=== PATIENT | female | born 1975 | race Caucasian/White ===

== ENCOUNTER 2024-02-05 11:09 | Emergency (ER) | payer OTHER, SELFPAY ==
[2024-02-05 11:11] VITALS: BP 159/99
[2024-02-05 12:36] VITALS: BP 120/66; BP 120/88; BP 129/85; PULSE 64; PULSE 72
[2024-02-05 13:00] VITALS: BP 134/89
[2024-02-05 14:00] VITALS: BP 135/76
[2024-02-05 14:27] LABS: TSH Reflex To Free T4 1.15 uIU/ml (0.47-4.68)
--- NOTE | 2024-02-05 17:36 | ED.GENMED ---
History of Present Illness
General
Chief Complaint: Dizziness
Source: patient
Exam Limitations: none
Time Seen by Provider: 02/05/24 11:50
Nursing documentation reviewed up to this point in time: agreed with
Travel History
Have you had any contact with someone who has COVID-19?: No
Do you have any symptoms of coronavirus? Fever > 100 degrees, chills, cough, shortness of breath, sore throat, loss of taste or smell, muscle aches, or headache?: No
History of Present Illness
History of Present Illness:
Patient to ED with complaint of pulsations in her neck, headaches, and dizziness. Symptoms started earlier this week and are intermittent. Currently symptoms free. Denies any CP/pressure, SOB, No fever/chills. No prior history of same.
Evaluated at and then sent to ED. Labs at scanned to chart, normal. No other complaiknts
Past History
Past History
ED Past Medical History: Psychiatric (Depression) and Other (Kidney stones, gastric bypass, migraines); Negative Asthma, HTN, Hypercholesterolemia or NIDDM
ED Past Surgical History: Cholecystectomy, Gynecological (oopherectomy) and Other; Negative Appendectomy or Bowel resection
Social History
Tobacco: Non-smoker
Alcohol: Occasional
Personal:
Living: with family
Employment: Employed
Family History
Family History: Other (Noncontributory)
Review of Systems
Review of Systems
Allergies reviewed?: Yes
All Other Systems: ROS reviewed and negative except as documented in HPI and ROS
Constitutional: Reports no symptoms
EENT: Reports no symptoms
Respiratory: Reports no symptoms
Cardiac: Reports palpitations
ABD/GI: Reports no symptoms
: Reports no symptoms
Musculoskeletal: Reports no symptoms
Skin: Reports no symptoms
Neurological: Reports dizzy and headache
Psychiatric: Reports no symptoms
Phy Exam
General Physical Exam
General Presentation: well appearing and no apparent distress
General age: appears stated age
General Skin: warm and dry
General Habitus: normal
Cardiovascular Exam
Cardiovascular Exam: regular rate/rhythm and no edema
Pulmonary Exam
Pulmonary Exam: lungs clear and no respiratory distress
Gastrointestinal Exam
Gastrointestinal Exam: normal bowel sounds and non tender
Musculoskeletal Exam
Musculoskeletal Exam: full ROM and neuro vasc intact
Skin Exam
Skin Exam: normal color, warm/dry and no rash
Psychiatric Exam
Psychiatric Exam: normal mood/affect
Course
Orders/Labs/Results
Orders:
Orders
02/05/24 11:35
Electrocardiogram (*1) Urgent
Reason for Study: Other
Other Reason for Exam: lightheaded
EKG- Treatment ONCE
02/05/24 12:31
Cardiac Monitoring- Treatment ONCE
Orthostatic VS- Treatment ONCE
02/05/24 13:15
TSH Reflex To Free T4 Urgent
Vital Signs
Initial and Last Documented VS:
Initial Vital Signs
Temp Pulse Resp BP Pulse Ox
97.6 F 65 16 159/99 98
02/05/24 11:11 02/05/24 11:11 02/05/24 11:11 02/05/24 11:11 02/05/24 11:11
Last Documented Vital Signs
Temp Pulse Resp BP Pulse Ox
97.6 F 63 25 135/76 99
02/05/24 11:11 02/05/24 14:45 02/05/24 14:45 02/05/24 14:00 02/05/24 14:45
*Pulse Oximetry
Patient hypoxic: no
*EKG
Rate: normal
Rhythm: sinus
*Critical Care Note
Total Time (30-74mins, 75-104mins- exclusive of procedures): Not Applicable
ED Attending Note
-
Portions of this chart may have been created with voice recognition software.� Occasional wrong word or��sound alike� substitutions may have occurred due to the inherent limitations of voice recognition software.
Discharge Plan
Departure
Patient Disposition: Home (Routine Discharge)
Date of Disposition: 02/05/24
Time of Disposition: 14:47
Patient with high blood pressure during this ER visit?: No
Condition: Good
Covid-19: Not Applicable
Discharge Problem:
Palpitations
Instructions: Palpitations
Prescriptions:
No Action
citalopram [Celexa] 40 MG tablet
30 mg PO QPM
sxyuikp-jilqrpbynp-MRH-caff [Fiorinal-Codeine #3] 1 EACH capsule
1 tab PO Q4 PRN (Reason: headache)
carbamazepine [Tegretol] 100 MG tablet,chewable
800 mg PO QPM
B-12
1 tab PO DAILY
sumatriptan succinate 50 MG tablet
50 mg PO PRN PRN (Reason: migraine)
fexofenadine [Lor] 180 MG tablet
180 mg PO DAILY
cholecalciferol (vitamin D3) [Vitamin D3] 2,000 UNIT capsule
2,000 unit PO DAILY
Fergon
27 mg PO DAILY
Flonase Nasal [place]:
1 spray inhalation DAILY
quetiapine 25 MG tablet
25 mg PO HS
ondansetron 4 MG tablet,disintegrating
4 mg PO TIDPRN PRN (Reason: NAUSEA) Qty: 12 0RF
hydrocodone-acetaminophen [Vicodin] 1 EACH tablet
1 ea PO Q4 PRN (Reason: pain) Qty: 10 0RF
diclofenac sodium 75 MG tablet,delayed release (DR/EC)
75 mg PO BID Qty: 10 0RF
diazepam 5 MG tablet
5 mg PO TIDPRN PRN (Reason: back pain) Qty: 10 0RF
prednisone 20 MG tablet
40 mg PO DAILY Qty: 10 0RF
promethazine 25 MG tablet
25 mg PO Q6HPRN PRN (Reason: nausea) Qty: 15 0RF
Referrals:
Liss Canela, DO [Family Provider] - Follow up in 2-3 days
Interventions
Interventions:
*Risk Screen - Suicide Last Done: 02/05/24 11:11
*General Assessment Last Done: 02/05/24 11:11
*Neglect/Abuse Screening Last Done: 02/05/24 11:11
ED- Fall Risk Assessment Last Done: 02/05/24 13:17
*ED COVID-19 Vaccine History Last Done: 02/05/24 15:09
*Nursing Disposition Last Done: 02/05/24 15:09
ED- Neurological Assessment Last Done: 02/05/24 15:10
ED- Cardiac Assessment Last Done: 02/05/24 13:17
Discharge Date and Time
Discharge Date/Time: 02/05/24 15:11
Print Language: ARMENIAN
== END 2024-02-05 15:11 | disposition home or self-care (01) ==
LOC: EMR 11:09
PROVIDERS: Nurse Practitioner; EMERGENCY PHYSICIAN Emergency Medicine; FAMILY PHYSICIAN Internal Medicine
DX: R00.2 Palpitations (principal); R42 Dizziness and giddiness; R51.9 Headache, unspecified
CPT/HCPCS: 99284; 84443; 93005

== ENCOUNTER 2025-01-05 06:28 | Day surgery (SDC) | payer OTHER, SELFPAY | END 2025-01-05 13:41 | disposition home or self-care (01) | LOC: GI 06:28 | PROVIDERS: ATTENDING PHYSICIAN Specialist | DX: R11.0 Nausea (principal); K29.50 Unspecified chronic gastritis without bleeding; Z98.84 Bariatric surgery status | CPT/HCPCS: 43239; 88305; 88342 ==

== ENCOUNTER 2025-03-10 15:02 | Emergency (ER) | payer OTHER, SELFPAY ==
[2025-03-10 15:06] VITALS: BP 145/90
[2025-03-10 15:33] LABS: % Basophils 0.8 % (0-2); % Immature Granulocytes 0.2 % (0-0.5); % Lymphocytes 27.8 % (20.5-51.1); % Monocytes 9.2 % (1.7-9.3); Absolute Basophils 0.1 10^3/uL (0-0.2); Absolute Lymphocytes 2.4 10^3/uL (1.2-3.4); Absolute Monocytes 0.8 10^3/uL (0.1-0.6); Absolute Neutrophils 5.3 10^3/uL (1.4-6.5); Hematocrit 40.7 % (37.0-47.0); Hemoglobin 13.9 g/dL (12.0-16.0); Mean Corp Hgb Conc. 34.2 g/dL (33.0-37.0); Mean Corpuscular Hgb 29.3 pg (27.0-31.0); Mean Corpuscular Volume 85.9 fL (81.0-99.0); Mean Platelet Volume 9.7 fL (7.4-10.4); Nucleated Red Blood Cells % 0 %; Platelet Count 327 10^3/uL (130-400); Red Blood Cell Count 4.74 10^6/uL (4.20-5.40); Red Cell Dist. Width 14.5 % (11.5-14.5); White Blood Cell Count 8.6 10^3/uL (4.8-10.8)
[2025-03-10 15:48] LABS: ALT (SGPT) 23 U/L (0-35); AST (SGOT) 23 U/L (14-36); Albumin 4.2 g/dl (3.5-5.0); Alkaline Phosphatase 108 U/L (38-126); Blood Urea Nitrogen 14 mg/dl (7-17); Calcium 9.8 mg/dl (8.4-10.2); Carbon Dioxide 27 mmol/L (22-30); Chloride 104 mmol/L (98-107); Glucose 97 mg/dl (70-99); Potassium 4.8 mmol/L (3.5-5.1); Sodium 139 mmol/L (135-145); Total Bilirubin 0.8 mg/dl (0.2-1.3); Total Protein 6.6 g/dl (6.3-8.2); eGFR > 60.00
[2025-03-10 15:53] LABS: COVID-19 Antigen Negative (Negative)
--- NOTE | 2025-03-10 16:46 | ED.GENMED ---
History of Present Illness
General
Chief Complaint: Breathing Problem
Time Seen by Provider: 03/10/25 16:27
History of Present Illness
History of Present Illness:
49-year-old female presents to the emergency department for evaluation of chest tightness and mild dry cough for the past 3 to 4 days. She went to urgent care prior to arrival and was referred to the ED due to an unremarkable exam and concerns for
an occult problem. Patient denies any fevers or chills. She has minimal coughing that is predominantly dry. Did feel short of breath this morning while walking her dog. Denies any chest pain. No fevers, denies URI symptoms. No history of lung
disease. Does not use tobacco products or marijuana products.
Past History
Past History
ED Past Medical History: Psychiatric (Depression) and Other (Kidney stones, gastric bypass, migraines); Negative Asthma, HTN, Hypercholesterolemia or NIDDM
ED Past Surgical History: Cholecystectomy, Gynecological (oopherectomy) and Other; Negative Appendectomy or Bowel resection
Social History
Tobacco: Non-smoker
Alcohol: Occasional
Personal:
Living: with family
Employment: Employed
Family History
Family History: Other (Noncontributory)
Review of Systems
Review of Systems
Allergies reviewed?: Yes
All Other Systems: ROS reviewed and negative except as documented in HPI and ROS
Phy Exam
Physical Exam
Physical Exam:
GEN: Well appearing, NAD, WDWN
HEENT: Oral mucosa moist, no scleral icterus, oropharynx clear with no postnasal drip or erythema
Cardiac: Regular rate and rhythm, no murmurs
Lung: No respiratory distress, no tachypnea, lungs clear to auscultation, no wheezes or rales
MSK: No gross deformity or injuries
Skin: Good color, no pallor or jaundice, no rashes
Neuro: AO x3, moves all extremities freely
Psych: Calm, cooperative
Scores
Heart Failure Risk
Heart Failure Risk Score: Not Applicable
Course
Orders/Labs/Results
Orders:
Orders
03/10/25 15:14
COVID-19 Antigen Urgent
Source: Nasal Swab
Complete Blood Count/With Diff Urgent
Comprehensive Metabolic Panel Urgent
Influenza A+B Rapid Molecular Urgent
CARLINE Source: Nasal Swab
Specimen Description:
03/10/25 16:33
CR Chest - 2 Views Urgent
Comment:
Reason For Exam: SOB
03/10/25 16:45
Electrocardiogram (*1) Urgent
Reason for Study: Shortness of Breath
EKG- Treatment ONCE
Ipratropium/Albuterol Sulfate [Duoneb] 3 ml INH R NOW STA
Abnormal Lab Results
03/10/25
15:14
Absolute Monos (auto) 0.8 H 10^3/uL
(0.1-0.6)
03/10/25 15:14
03/10/25 15:14
Vital Signs
Initial and Last Documented VS:
Initial Vital Signs
Temp Pulse Resp BP Pulse Ox
98.1 F 68 18 145/90 96
03/10/25 15:06 03/10/25 15:06 03/10/25 15:06 03/10/25 15:06 03/10/25 15:06
Last Documented Vital Signs
Temp Pulse Resp BP Pulse Ox
98.1 F 68 20 144/74 98
03/10/25 15:06 03/10/25 18:27 03/10/25 18:27 03/10/25 18:27 03/10/25 18:27
MDM/Problems Addressed
MDM/Problems Addressed:
Patient dramatically improved after neb treatment although there was no wheezing on exam, I suspect this may be a viral mediated reactive airway versus allergy mediated reactive airway syndrome. X-ray is unremarkable, labs are reassuring, EKG
without ischemic changes.
*Critical Care Note
Total Time (30-74mins, 75-104mins- exclusive of procedures): Not Applicable
ED Attending Note
-
Portions of this chart may have been created with voice recognition software.� Occasional wrong word or��sound alike� substitutions may have occurred due to the inherent limitations of voice recognition software.
Discharge Plan
Departure
Patient Disposition: Home (Routine Discharge)
Date of Disposition: 03/10/25
Time of Disposition: 18:06
Patient with high blood pressure during this ER visit?: No
Discharge Problem:
Reactive airway disease
Instructions: Wheezing in adults
Prescriptions:
New
albuterol sulfate 90 mcg/actuation HFA aerosol inhaler
2 puff inhalation Q6H PRN (Reason: shortness of breath or wheezing) Qty: 6.7 0RF
methylprednisolone [Medrol (Minesh)] 4 mg tablets,dose pack
See Rx Instructions .ROUTE .COMPLEX Qty: 21 0RF
Rx Instructions:
orally per package directions
No Action
citalopram [Celexa] 40 MG tablet
30 mg PO QPM
mltmrto-uznuibrisg-LTS-caff [Fiorinal-Codeine #3] 1 EACH capsule
1 tab PO Q4 PRN (Reason: headache)
carbamazepine [Tegretol] 100 MG tablet,chewable
800 mg PO QPM
B-12
1 tab PO DAILY
sumatriptan succinate 50 MG tablet
50 mg PO PRN PRN (Reason: migraine)
fexofenadine [Lor] 180 MG tablet
180 mg PO DAILY
cholecalciferol (vitamin D3) [Vitamin D3] 2,000 UNIT capsule
2,000 unit PO DAILY
Fergon
27 mg PO DAILY
Flonase Nasal [place]:
1 spray inhalation DAILY
quetiapine 25 MG tablet
25 mg PO HS
ondansetron 4 MG tablet,disintegrating
4 mg PO TIDPRN PRN (Reason: NAUSEA) Qty: 12 0RF
hydrocodone-acetaminophen [Vicodin] 1 EACH tablet
1 ea PO Q4 PRN (Reason: pain) Qty: 10 0RF
diclofenac sodium 75 MG tablet,delayed release (DR/EC)
75 mg PO BID Qty: 10 0RF
diazepam 5 MG tablet
5 mg PO TIDPRN PRN (Reason: back pain) Qty: 10 0RF
prednisone 20 MG tablet
40 mg PO DAILY Qty: 10 0RF
promethazine 25 MG tablet
25 mg PO Q6HPRN PRN (Reason: nausea) Qty: 15 0RF
Referrals:
Liss Canela DO [Family Provider] -
Interventions
Interventions:
*Risk Screen - Suicide Last Done: 03/10/25 15:06
*General Assessment Last Done: 03/10/25 15:06
*Neglect/Abuse Screening Last Done: 03/10/25 15:06
*ED COVID-19 Vaccine History Last Done: 03/10/25 15:06
*Nursing Disposition Last Done: 03/10/25 18:27
ED- Cardiac Assessment Last Done: 03/10/25 16:28
ED- Pulmonary Assessment Last Done: 03/10/25 16:28
Discharge Date and Time
Discharge Date/Time: 03/10/25 18:29
Print Language: GEORGIAN
[2025-03-10] MEDS: DUONEB 3 ML INH (17:03)
[2025-03-10 18:27] VITALS: BP 144/74
== END 2025-03-10 18:29 | disposition home or self-care (01) ==
LOC: EMR 15:02
PROVIDERS: EMERGENCY PHYSICIAN Emergency Medicine; FAMILY PHYSICIAN Internal Medicine
DX: J45.909 Unspecified asthma, uncomplicated (principal); R07.89 Other chest pain; Z98.84 Bariatric surgery status; Z11.52 Encounter for screening for COVID-19
CPT/HCPCS: 99285; 94640; 71046; 80053; 85025; 87502; 87811; 93005

== ENCOUNTER 2025-07-05 02:06 | Emergency (ER) | payer MEDICARE, SELFPAY ==
[2025-07-05 02:13] VITALS: BP 146/95
[2025-07-05] MEDS: ZOFRAN 4 MG IV (03:33)
[2025-07-05] MEDS: NSS 1000 IV (03:33)
[2025-07-05] MEDS: TORADOL 15 MG IV (03:33)
[2025-07-05 03:37] VITALS: BP 116/71
[2025-07-05 03:53] LABS: Hematocrit 41.8 % (37.0-47.0); Hemoglobin 14.0 g/dL (12.0-16.0); Mean Corp Hgb Conc. 33.5 g/dL (33.0-37.0); Mean Corpuscular Volume 90.3 fL (81.0-99.0); Nucleated Red Blood Cells % 0 %; Platelet Count 280 10^3/uL (130-400); Red Cell Dist. Width 14.1 % (11.5-14.5)
[2025-07-05 04:12] LABS: ALT (SGPT) 30 U/L (0-35); AST (SGOT) 27 U/L (14-36); Albumin 4.6 g/dl (3.5-5.0); Alkaline Phosphatase 92 U/L (38-126); Blood Urea Nitrogen 13 mg/dl (7-17); Calcium 9.5 mg/dl (8.4-10.2); Carbon Dioxide 30 mmol/L (22-30); Chloride 107 mmol/L (98-107); Glucose 100 mg/dl (70-99); Potassium 4.4 mmol/L (3.5-5.1); Sodium 140 mmol/L (135-145); Total Protein 6.7 g/dl (6.3-8.2); eGFR > 60.00
[2025-07-05 04:14] VITALS: BP 86/64
--- NOTE | 2025-07-05 04:16 | ED.GENMED ---
History of Present Illness
General
Chief Complaint: Flank Pain
Source: patient
Exam Limitations: none
Time Seen by Provider: 07/05/25 03:02
Nursing documentation reviewed up to this point in time: agreed with
History of Present Illness
History of Present Illness:
The patient is a 50-year-old female with a history of nephrolithiasis over 20 years ago, presenting with right flank pain that initially began Wednesday, 4-1/2 days ago. She describes the pain as spasmodic and difficult to differentiate from her past
experience with kidney stones. The pain is exacerbated by movement and has not radiated to the right lower quadrant. The patient reports frequent urination but denies hematuria and dysuria. She experiences nausea and has vomited once. She denies
fever. The patient started on Ciprofloxacin on Wednesday after a urine test at her PCP office suggested an infection, and her urine was sent for a culture. Her symptoms started prior to seeing her physician on Wednesday, where she was evaluated.
Home medications include: [place], Lamictal, Ritalin, metformin, benztropine, temazepam, propranolol, as needed sumatriptan, vitamin B12, multivitamin, magnesium.
Past History
Past History
ED Past Medical History: Psychiatric (Bipolar depression; migraine headaches) and Other (Kidney stones, gastric bypass, migraines); Negative Asthma, HTN, Hypercholesterolemia or NIDDM
ED Past Surgical History: Cholecystectomy, Gynecological (oopherectomy, hysterectomy), Tonsilectomy, Urological (Kidney stone removal 2000) and Other (Gastric bypass); Negative Appendectomy or Bowel resection
Social History
Tobacco: Non-smoker
Alcohol: Occasional
Personal:
Living: with family
Employment: Employed
Family History
Family History: Other (Noncontributory)
Phy Exam
Physical Exam
Physical Exam:
GENERAL: 50-year-old woman appears her stated age, bright and alert, pleasant, appears in no acute distress.
EYE: anicteric
NECK: Supple, nontender, no meningismus, no significant adenopathy.
ENT: oral mucosa is moist. No rhinorrhea.
CARDIAC: Regular rate and rhythm. no murmur.
LUNGS: Clear breath sounds bilaterally, no acute respiratory distress, no wheezes/rales/rhonchi
ABDOMEN: Soft, nondistended, without focal tenderness, no r/g, mild right CVA tenderness to percussion. Normoactive BS.
NEUROLOGICAL: Alert and oriented x3, no focal neuro deficits. Gait is stuart and steady.
SKIN: Warm and dry, normal color, skin intact. No rash.
MUSCULOSKELETAL: No C/C/E. peripheral pulses are full and equal b/l. No palpable tenderness.
PSYCH: Normal and appropriate interaction.
Course
Orders/Labs/Results
Orders:
Orders
07/05/25 03:05
CT Abd/pel Without Iv Or Oral Urgent
Comment:
Reason For Exam: R flank pain. hx kidney stones
07/05/25 03:13
0.9% Sodium Chloride 1000 ml [Nss] 1,000 ml IV BOLUS
Ketorolac [Toradol] 15 mg IV NOW STA
Ondansetron Injectable [Zofran] 4 mg IV NOW STA
07/05/25 03:32
Complete Blood Count/With Diff Urgent
Comprehensive Metabolic Panel Urgent
07/05/25 04:10
Urinalysis Reflex To Culture Urgent
Date Specimen was Collected: 07/05/25
Time Specimen was Collected: 04:08
Abnormal Lab Results
07/05/25
03:32
Absolute Monos (auto) 0.7 H 10^3/uL
(0.1-0.6)
Monocytes % 9.6 H %
(1.7-9.3)
Glucose 100 H mg/dl
(70-99)
07/05/25 03:32
07/05/25 03:32
Vital Signs
Initial and Last Documented VS:
Initial Vital Signs
Temp Pulse Resp BP Pulse Ox
98.1 F 66 18 146/95 98
07/05/25 02:13 07/05/25 02:13 07/05/25 02:13 07/05/25 02:13 07/05/25 02:13
Last Documented Vital Signs
Temp Pulse Resp BP Pulse Ox
98.1 F 58 18 93/62 100
07/05/25 02:13 07/05/25 03:37 07/05/25 03:37 07/05/25 05:00 07/05/25 05:00
MDM/Problems Addressed
Differential Diagnosis Includes:
The Differential Diagnosis includes, in no particular order and is not limited to:
- Nephrolithiasis
- Urinary Tract Infection
- Musculoskeletal pain
- Gastroenteritis
- Pyelonephritis
- Interstitial cystitis
- Appendicitis
- Biliary colic
- Colitis
MDM/Problems Addressed:
Acute right flank pain
Will check labs, urinalysis. Will plan for IV Toradol and Zofran for pain, nausea.
Will check CT abdomen pelvis.
Chronic conditions affecting care: Kidney disease (Prior history of kidney stones)
*Radiology
Radiology exam reviewed: radiology read reviewed (CT abdomen pelvis is unremarkable. No evidence of nephro ureterolithiasis, no hydronephrosis nor signs of pyelonephritis.)
*Pulse Oximetry
SaO2: 98
Oxygen Mode of Delivery: Room air
Patient hypoxic: no
*Critical Care Note
Total Time (30-74mins, 75-104mins- exclusive of procedures): Not Applicable
Update Note
Update Note:
05:00
Patient feeling markedly improved after IV dose of Toradol and Zofran. Flank pain and nausea have resolved.
CT abdomen pelvis is unremarkable.
Labs are unremarkable as is urinalysis.
I suspect right flank pain is musculoskeletal in nature, especially as it worsens with movement of her trunk.
Will trial short course of an NSAID. As patient maintained on lithium we will avoid further Zofran as both can increase QT length and instead will prescribe Compazine for as needed nausea.
Recommend local heat, topical heat versus lidocaine patches.
Gentle stretching exercises.
Prompt follow-up with PCP for recheck.
ED Attending Note
-
Portions of this chart may have been created with voice recognition software.� Occasional wrong word or��sound alike� substitutions may have occurred due to the inherent limitations of voice recognition software.
Discharge Plan
Departure
Patient Disposition: Home (Routine Discharge)
Date of Disposition: 07/05/25
Time of Disposition: 05:09
Patient with high blood pressure during this ER visit?: No
Condition: Good
Discharge Problem:
Musculoskeletal right flank pain
Instructions: Flank Pain (DC), Back exercises
Prescriptions:
New
diclofenac sodium 75 mg tablet,delayed release (DR/EC)
75 mg PO BID PRN (Reason: pain) Qty: 14 0RF
Rx Instructions:
take with food
prochlorperazine maleate [Compazine] 5 mg tablet
5 mg PO TID PRN (Reason: nausea and vomiting) Qty: 7 0RF
Discontinued
citalopram [Celexa] 40 MG tablet
30 mg PO QPM
kcoajsb-jpuameuyyn-MBW-caff [Fiorinal-Codeine #3] 1 EACH capsule
1 tab PO Q4 PRN (Reason: headache)
carbamazepine [Tegretol] 100 MG tablet,chewable
800 mg PO QPM
fexofenadine [Lor] 180 MG tablet
180 mg PO DAILY
Fergon
27 mg PO DAILY
quetiapine 25 MG tablet
25 mg PO HS
ondansetron 4 MG tablet,disintegrating
4 mg PO TIDPRN PRN (Reason: NAUSEA) Qty: 12 0RF
diclofenac sodium 75 MG tablet,delayed release (DR/EC)
75 mg PO BID Qty: 10 0RF
diazepam 5 MG tablet
5 mg PO TIDPRN PRN (Reason: back pain) Qty: 10 0RF
prednisone 20 MG tablet
40 mg PO DAILY Qty: 10 0RF
promethazine 25 MG tablet
25 mg PO Q6HPRN PRN (Reason: nausea) Qty: 15 0RF
methylprednisolone [Medrol ([place]h)] 4 mg tablets,dose pack
See Rx Instructions .ROUTE .COMPLEX Qty: 21 0RF
Rx Instructions:
orally per package directions
No Action
B-12
1 tab PO DAILY
sumatriptan succinate 50 MG tablet
50 mg PO PRN PRN (Reason: migraine)
cholecalciferol (vitamin D3) [Vitamin D3] 2,000 UNIT capsule
2,000 unit PO DAILY
Flonase Nasal [place]:
1 spray inhalation DAILY
hydrocodone-acetaminophen [Vicodin] 1 EACH tablet
1 ea PO Q4 PRN (Reason: pain) Qty: 10 0RF
albuterol sulfate 90 mcg/actuation HFA aerosol inhaler
2 puff inhalation Q6H PRN (Reason: shortness of breath or wheezing) Qty: 6.7 0RF
Referrals:
UNKNOWN - PT DOES,NOT KNOW [Family Provider] - Call in 1-3 days for appt
Interventions
Interventions:
*Risk Screen - Suicide Last Done: 07/05/25 02:13
*General Assessment Last Done: 07/05/25 03:30
*Neglect/Abuse Screening Last Done: 07/05/25 02:13
*ED- Fall Risk Assessment Last Done: 07/05/25 03:30
*ED COVID-19 Vaccine History Last Done: 07/05/25 03:30
CR-Snklcg-Afbvxxsdie Assessment Last Done: 07/05/25 03:30
ED-Female Genitourinary Assessment Last Done: 07/05/25 03:30
Discharge Date and Time
Print Language: FRISIAN
[2025-07-05 04:17] LABS: Urine Character Clear (Clear)
[2025-07-05 05:00] VITALS: BP 93/62
== END 2025-07-05 05:29 | disposition home or self-care (01) ==
LOC: EMR 02:06
PROVIDERS: EMERGENCY PHYSICIAN Emergency Medicine
DX: R10.9 Unspecified abdominal pain (principal); R11.0 Nausea; E11.9 Type 2 diabetes mellitus without complications; I10 Essential (primary) hypertension; Z87.442 Personal history of urinary calculi; Z90.49 Acquired absence of other specified parts of digestive tract; Z90.710 Acquired absence of both cervix and uterus; Z98.84 Bariatric surgery status
CPT/HCPCS: 96374; 96375; 96361; 99284; 74176; 80053; 81003; 85025

== ENCOUNTER 2025-08-16 06:14 | Day surgery (SDC) | payer MEDICARE, SELFPAY | END 2025-08-16 16:25 | disposition home or self-care (01) | LOC: GI 06:14 | PROVIDERS: ATTENDING PHYSICIAN Specialist | DX: Z12.11 Encounter for screening for malignant neoplasm of colon (principal); K52.9 Noninfective gastroenteritis and colitis, unspecified; K57.30 Diverticulosis of large intestine without perforation or abscess without bleeding; D12.8 Benign neoplasm of rectum; D12.3 Benign neoplasm of transverse colon; Z86.0101 Personal history of adenomatous and serrated colon polyps | CPT/HCPCS: 45385; 45380; 88305 ==